=== PATIENT | male | born 1990 | race Caucasian/White ===

== ENCOUNTER 2022-05-03 11:35 | Emergency (ER) | payer OTHER, SELFPAY ==
[2022-05-03 12:04] VITALS: BP 132/78; PULSE 74; RESP 20; TEMP 37.2; O2SAT 97; BMI 38.0
[2022-05-03] MEDS: LIDOCAINE 1 % PF 30 ML INJECTION (13:56)
--- NOTE | 2022-05-03 13:56 | ED.NURSE ---
in room to complete incision and drainage. dressing wound.
--- NOTE | 2022-05-03 14:03 | ED_ITS ---
HPI - Skin/Abscess/Foreign Bdy General Chief complaint: Skin/Abscess/Foreign Body Stated complaint: Painful lump on back of neck Time Seen by Provider: 05/03/22 12:14 History of Present Illness HPI narrative: This 32-year-old male comes in with a cutaneous abscess on posterior aspect of his neck. He states that he has been feeling some swelling and pain there for the past 10 days or so. He had similar symptoms about 12 years ago and while in the he went into the clinic and someone aspirated and squeezed fluid out. He states that these current symptoms seem worse. He has an area of erythema and swelling that is approximately 6-8 cm in diameter on the central portion of posterior aspect of his neck. He does not report any fevers. Related Data Previous Rx's Medication Instructions Recorded cephalexin 500 mg capsule 500 mg PO TID 7 days #21 caps 05/03/22 hydrocodone 5 mg-acetaminophen 325 1 tab PO Q4-6H PRN pain #6 tabs 05/03/22 mg tablet Allergies Allergy/AdvReac Type Severity Reaction Status Date / Time No Known Drug Allergies Allergy Verified 05/03/22 12:08 Review of Systems Status of ROS: Reports: 10 or more systems reviewed and unremarkable except as noted in History and below Narrative: Constitutional: No fevers, no weight gain or loss. Eyes: No discharge. No vision changes. HENT: No congestion, no sore throat, no ear pain. Cardiovascular: No chest pain, no palpitations. Respiratory: No shortness of breath, no wheezes, no cough. Gastrointestinal: No abdominal pain, no vomiting, no diarrhea. Genitourinary: No dysuria, no hematuria. Musculoskeletal: Normal range of motion. Skin: No rashes, no pruritis. Cutaneous abscess in the posterior neck as described above. Neurological: No dizziness, weakness, sensory change, speech change. Endo/Heme/Allergies: No bruising or bleeding. No polydipsia. Pysch: no suicidality, no anxiety, no insomnia. All other systems reviewed and are negative. PFSH PFS Social History Smoking Status: Never smoker Do you use any of these nicotine containing products: None Second hand tobacco smoke exposure: No How often do you have a drink containing alcohol: monthly or less How many standard drinks containing alcohol do you have on a typical day: 1 or 2 How often do you have six or more drinks on one occasion: Never AUDIT-C Alcohol total score: 1 Non-prescribed substance use: denies use Exam Narrative: Exam Narrative: Constitutional: Well-developed, well-nourished, no acute distress. HEENT: Normocephalic, atraumatic. Neck: Normal range of motion. Nontender. Supple. Heart: Intact distal pulses. Lungs: No chest discomfort. No wheezes, rhonchi, or rales. Abdomen: Nontender. Back: Normal range of motion. Extremities: Normal range of motion. No injury. Skin: Intact. No rash. Warm. No erythema or pallor. Cutaneous abscess in the posterior aspect of his neck with surrounding erythema and pain. Neurologic: No altered sensation. No weakness. Alert and oriented. Psychiatric: No suicidality. No anxiety or depression. No insomnia. Nursing notes and vitals signs are reviewed. Const: Vital Signs, click to edit/add: Vital Signs - 24 hr 05/03/22 12:04 Temperature 99.0 F Pulse Rate [Pulse Oximeter] 74 Respiratory Rate 20 Blood Pressure [Ri ght Upper Arm] 132/78 Pulse Oximetry 97 Oxygen Delivery Me thod Room Air Course Vital Signs Vital signs: Initial Vital Signs Temperature 99.0 F 05/03/22 12:04 Temperature Source Temporal Artery Scan 05/03/22 12:04 Pulse Rate 74 05/03/22 12:04 Respiratory Rate 20 05/03/22 12:04 Blood Pressure 132/78 05/03/22 12:04 Blood Pressure Mean 96 05/03/22 12:04 Blood Pressure Position Sitting 05/03/22 12:04 Pulse Oximetry 97 05/03/22 12:04 Oxygen Delivery Method 05/03/22 12:04 Vital Signs Temperature 99.0 F 05/03/22 12:04 Pulse Rate 74 05/03/22 12:04 Respiratory Rate 20 05/03/22 12:04 Blood Pressure 132/78 05/03/22 12:04 Pulse Oximetry 97 05/03/22 12:04 Oxygen Delivery Method 05/03/22 12:04 Temperature 99.0 F 05/03/22 12:04 Pulse Rate 74 05/03/22 12:04 Respiratory Rate 20 05/03/22 12:04 Blood Pressure 132/78 05/03/22 12:04 Pulse Oximetry 97 05/03/22 12:04 Oxygen Delivery Method 05/03/22 12:04 MDM - Skin/Abscess/Foreign Bdy MDM Narrative Medical decision making narrative: This patient presents with a large abscess in his posterior neck. I did use ultrasound to evaluate the location of the abscess. After anesthesia with 1% lidocaine I used a 15. Blade to incise into the abscess. There was a large amount of odorous purulent fluid that was expressed. I did place iodoform gauze to keep the wound open and allow for drainage. A dressing was applied and instructions were given regarding this gauze. I advised him to remove the gauze in a day or 2 and allow to heal by secondary intention. He should follow up with clinic or return if worsening symptoms occur. He did received prescription for Keflex and a few tablets of Blodgett. Discharge Plan Discharge Clinical Impression: Abscess of skin or subcutaneous tissue Patient Disposition: Home, Self-Care Condition: Stable Additional Instructions: Keep gauze in place for 1-2 days then remove and allow to heal normally. Take medication as prescribed. Follow up with MD or return if not improving or worsening symptoms happen. Prescriptions: New hydrocodone-acetaminophen 5-325 mg tablet 1 tab PO Q4-6H PRN (Reason: pain) Qty: 6 0RF cephalexin 500 mg capsule 500 mg PO TID 7 Days Qty: 21 0RF Follow Up/Referrals: Provider,Not a Local [Primary Care Provider] - Stand Alone Forms: Privacy[employer]ralth Info Instructions
== END 2022-05-03 14:20 | disposition home or self-care (01) ==
PROVIDERS: Emergency Provider Emergency Medicine Emergency Medical Services
DX: L02.11 Cutaneous abscess of neck (principal)
CPT/HCPCS: 10060; 99283; 99284; J2001